=== PATIENT | female | born 1975 | race Caucasian/White ===

== ENCOUNTER 2019-08-17 08:44 | Day surgery (SDC) | payer OTHER, SELFPAY ==
--- NOTE | 2019-08-02 08:24 | HP.PCM_ITS ---
History and Physical Date of Admission: 08/17/19 Kelsey Neenaadilson Oneal Physician Specialty: OPERATIONS RESEARCH GROUP MANAGER H&P Signed Encounter Date: 07/27/2019 Expand All Collapse All Hide copied text Natalie for details Christina Hidalgo is a 44 year old female who presents for discussion of surgical intervention. Patient presented previously for concerns regarding heavy menses and underwent an endometrial biopsy and a pelvic ultrasound. Overall pelvic ultrasound is normal however does have some myometrial cyst which could represent adenomyosis. Patient reports she would like to proceed with a hysteroscopy, endometrial ablation for heavy menses. Patient declines any further management with hormonal treatment. ? ? PAST MEDICAL HISTORY PAST MEDICAL HISTORY Diagnosis Date ? Endometriosis ? ? Ovarian cyst ? PAST SURGICAL HISTORY PAST SURGICAL HISTORY Procedure Laterality Date ? LAPAROSCOPY DIAGNOSTIC ? 2008 ? in [place], Adhesions to fallopian tubes per patient. ? TUBAL LIGATION HX ? ? FAMILY HISTORY No family history on file. SOCIAL HISTORY Social History ? Tobacco Use ? Smoking status: Current Every Day Smoker ? ? Types: Cigarettes ? Smokeless tobacco: Never Used Substance Use Topics ? Alcohol use: Yes ? Drug use: Never CURRENT MEDICATIONS Current Outpatient Medications Medication Sig ? multivitamin tablet Take 1 tablet by mouth once daily. ? multivit,min/folic acid/[id number] (MENOPAUSE SUPPLEMENT ORAL) Take by mouth. Steal libido for women Black cohosh fish oil prime noris oil ? ? No current facility-administered medications for this visit. Allergies As of Date: 07/27/2019 Allergen Noted Reaction PENICILLINS 07/11/2019 Mental Status Change ? Fully Assessed 07/27/2019 ? REVIEW OF SYSTEMS Abdomen: no pain Bladder: no dysuria.. Expanded ROS: GENERAL: Negative for fever Allergies and current medication updated:Yes ? EXAM: BP 110/78 Ht 5' 6 (1.68m) Wt 181 lb (82.1kg) LMP 07/06/2019 BMI 29.23 kg/(m^2). GENERAL: pleasant, female in no apparent distress HEENT: Normocephalic and atraumatic NECK: full range of motion DERMATOLOGY: Normal, without lesions, non-icteric and non-hirsute NEURO: alert and oriented x3,exam grossly non-focal EXTREMITIES: normal ? ASSESSMENT AND PLAN: Encounter Diagnosis ? ? ICD-10-CM ? 1. Excessive bleeding in premenopausal period N92.4 ? 2. Discussed management options again with the patient. She would like to proceed with a hysteroscopy, endometrial ablation at this time. She is schedule d for August 17, 2019 [facility]. 3. We discussed that if she does have adenomyosis there is a potential that she could fail this procedure and possibly need a hysterectomy in the future. Patient understands this. She declines further hormonal treatment. 4. Declines post op medication- has naproxen at home ? Pt has been counseled on risks/benefits and alternatives of surgery including but not limited to anesthesia, bleeding, infection, perforation of uterus with subsequent injury to pelvic structures including bowel, bladder, and vessels. Pt wishes to proceed with surgery at this time. ? COVID testing reviewed ? The patient was offered a surgery/procedure at [facility]. The surgeon/proceduralist and patient have discussed in detail the risk of exposure to and/or potential harm posed by the COVID-19 virus with having a surgery/procedure at this time versus the risk of? delaying the surgery/procedure. It is not possible to know either the risk of delaying the surgery or procedure or chance of getting an infection with perfect accuracy, but a joint decision was made between the patient and the surgeon/proceduralist ?to proceed at this time with the scheduled surgery/procedure as indicated on the consent form. ? ? Kelsey Mendez MD ?
--- NOTE | 2019-08-17 | EMB_PTH ---
PATIENT: ANGELA ARGUELLES [place] [facility] [id number] AGE/SX: 44/F ROOM: RE08/17/[address]: Dr. Kelsey Mendez, MDDOB: 1975 BED: DIS: 08/17/2019 SPEC #: [id number] RECD: 08/17/19 13:31 STATUS: ASHLEIGH KSENIA #: [id number] ZANDER: 08/17/19 00:[address]: Kelsey Mendez DEPT: SURGICAL PATHOLOGY RECD BY: Dinh Severino ENTERED: 08/17/19 13:31 SP TYPE: ENDOM BX/C VERONICA DR: [facility] Tissues: Endometrium, NOS Procedures: Surgery Specimen Level IV HEADER OPERATION: Hysteroscopy, D & C, Arabella ablation PRE-OP DIAGNOSIS: Excessive bleeding in premenopausal period TISSUE SUBMITTED: Endometrial curettings MICROSCOPIC DIAGNOSIS Endometrial curettings: Secretory endometrium. Fragments of benign endocervical mucosa. ISSA:justin 08/18/19 MICROSCOPIC DESCRIPTION Slides are reviewed. GROSS DESCRIPTION Received in fixative is one container labeled with the patient's name and designated endometrial curettings. The specimen consists of multiple fragments of hemorrhagic soft tissue that in aggregate measure 3 x 2.5 x 0.3 cm. The specimen is totally submitted in one cassette. / ISSA:justin 08/17/19 TC:4 CPT: 46397
[2019-08-17 09:05] VITALS: BP 120/80; PULSE 75; RESP 16; TEMP 37.2; O2SAT 97; BMI 28.3
[2019-08-17 09:12] LABS: Hematocrit 43.1 % (37-47); Hemoglobin 13.8 g/dL (12.0-15.0); Mean Corpuscular Hgb 28.1 pg (27.0-32.0); Mean Corpuscular Volume 87.8 fL (81-99); Mean Platelet Vol. 9.8 fl (6.2-12.0); Platelet Count 259 K/mm3 (150-450); RBC Distribution Width CV 14.5 % (11.6-14.6); RBC Distribution Width SD 46.6 fl (35.1-43.9); Red Blood Count 4.91 M/mm3 (4.2-5.4); White Blood Count 10.5 K/mm3 (4.4-11.0)
[2019-08-17] MEDS: Lactated Ringers 1,000 ML 100 ML IV (09:14)
[2019-08-17 09:21] LABS: Internal QC Validated? YES +Cl - CLEAR BKGD; Pregnancy, Urine Negative Negative
--- NOTE | 2019-08-17 10:25 | OP.PCM_ITS ---
Report of Operation Date of Procedure: 08/17/19 Pre-Operative Diagnosis: AUB Post-Operative Diagnosis: same Surgery/Procedure Performed:: Hysteroscopy, D&C, Arabella ablation Description of Surgical Findings:: large amount of endometrial tissue. both tubal ostia visualized. Special Medications: none Specimen's removed: Endometrial curettings Drains: none Estimated Blood Loss (mL): 5cc Fluids Replaced: 700 Description of Procedure: After informed consent was obtained patient taken to the operating room she is placed in supine position she is given anesthesia simply self insert she is prepped draped normal sterile fashion. Bladder was drained prior to the start of the procedure. At this time the weighted speculum was placed the posterior fornix of the vagina then a single-tooth tenaculum was used to grasp the anterior lip of the cervix. At this time the uterus was sounded to appro ximately 9cm the endocervical canal sounded to 4 cm. Next cervix was dilated in incremental fashion. Once adequate dilatation was achieved the hysteroscope was inserted using normal saline as distention medium. On hysteroscopy there were no gross abnormalities just large amount of endometrial tissue. Both tubal ostia were visualized. At this time sharp curettage was performed which yielded small amount of endometrial tissue. tissue will be sent to pathology for evaluation. At this time the Arabella device was opened. The Arabella was set at 5 cm. The device was activated. Prior to activation the field test was performed and cavity was intact. The device was then fired and activated for 120 seconds. Once the 120 seconds was completed the device was removed intact and the tenaculum was removed. Good hemostasis was appreciated. Weighted speculum was removed. Vaginal sweep was performed is negative. There were no complications. Anticipated normal postoperative course for this patient. Instrument and lap count were correct ?2. vaginal sweep negative Grafts/Implants Used: none - Complications none - Admit VTE Documentation VTE Present on Admission: Yes VTE Mechan Device Prophylaxis: SCD's VTE Pharm Prophylaxis ordered?: No
--- NOTE | 2019-08-17 10:29 | DCINST_ITS ---
Discharge Diet: No Restrictions Discharge Activity: Return to Normal Activity, May Shower, May Take a Tub Bath - in 2 weeks. Call your doctor if you observe: Fever of 101 or Higher, Using more than one pad per hour, Uncontrolled pain Allergies/Adverse Reactions: Allergies Penicillins Adverse Reaction (Verified 08/17/19 08:51) PT UNSURE OF REACTION causes mental/ concentration issues Medications to take at Discharge Black Cohosh Root Extract [Black Cohosh Extract] 80 mg PO DAILY 08/10/19 Diphenhydramine HCl [Simply Sleep] 50 mg PO QHS 08/10/19 Eprim/Linoleic/Gamolenic/Cranb [[place]ing [place] Oil Softgel] 1 ea PO DAILY 08/10/19 Ferrous Sulfate [High Potency Iron] 65 mg PO QHS 08/10/19 [place]-3 Fatty Acids/Fish Oil [[place] 3 Fish Oil Softgel] 1 ea PO DAILY 08/10/19 Steel Libido 2 cap PO DAILY 08/10/19 Womens Ultra Abdirashid Menopause 1 dose PO DAILY 08/10/19 Primary Care Physician: [facility] [Primary Care Provider] - Test Results: Test results from this visit will be discussed in further detail at your follow- up appointment, if applicable. Please Follow Up With: Kelsey Mendez MD When: 2 weeks
[2019-08-17 10:33] VITALS: BP 120/80; BP 126/82; PULSE 68; RESP 16; TEMP 36.7; O2SAT 97
[2019-08-17 10:38] VITALS: BP 118/82; BP 120/80; PULSE 67; RESP 16; O2SAT 100
[2019-08-17 10:43] VITALS: BP 116/86; BP 120/80; PULSE 67; RESP 16; O2SAT 97
[2019-08-17 10:48] VITALS: BP 120/80; BP 121/86; PULSE 67; RESP 16; TEMP 36.9; O2SAT 98
[2019-08-17 11:19] VITALS: BP 120/80
== END 2019-08-17 11:26 | disposition home or self-care (01) ==
LOC: SDC 08:47 → AC 08:49
PROVIDERS: Anesthesiology; Referring Provider Obstetrics & Gynecology; Visit Provider Obstetrics & Gynecology
PROC: 0U5B8ZZ Destruction of Endometrium, Via Natural or Artificial Opening Endoscopic (ICD-10-PCS; CPT 58558; principal; 2019-08-17 10:20)
DX: N92.4 Excessive bleeding in the premenopausal period (principal); N80.9 Endometriosis, unspecified; Z11.59 Encounter for screening for other viral diseases; F17.210 Nicotine dependence, cigarettes, uncomplicated
CPT/HCPCS: 58563; 36415; 81025; 85027; 87635; 88305; G2023; J7120; J2405; U0003